=== PATIENT | female | born 1975 | race Caucasian/White ===

== ENCOUNTER 2017-03-16 03:20 | Inpatient (IN) | payer MEDICARE ==
[2017-03-16] MEDS ORDERED: diPHENhydraMINE IV* 50 MG/ML 1 ml VIAL (BENADRYL) ONE (03:42)
[2017-03-16] MEDS ORDERED: LORazepam INJ* 2 MG/ML 1 ML VIAL ONE (03:42)
[2017-03-16] MEDS ORDERED: Haloperidol INJ IV/IM* 5 MG/ML AMP ONE (03:42)
[2017-03-16 06:56] LABS: Anion Gap 7 mmol/L (2-11); BUN/Creatinine Ratio 15.9 (8-20); Blood Urea Nitrogen 13 mg/dL (6-24); CO2 Carbon Dioxide 23 mmol/L (22-32); Calcium 9.2 mg/dL (8.6-10.3); Chloride 105 mmol/L (101-111); EGFR African American 97.9 (>60); EGFR Non-African American 76.1 (>60); Glucose 99 mg/dL (70-100); Sodium 135 mmol/L (133-145)
[2017-03-16 06:57] LABS: ALT 23 U/L (7-52); AST 21 U/L (13-39); Alkaline Phosphatase 50 U/L (34-104); Cholesterol 128 mg/dL; Globulin 2.7 g/dL (2-4); Indirect Bilirubin 0.1 mg/dL (0.3-1.0); Magnesium 2.2 mg/dL (1.9-2.7); Total Protein 6.7 g/dL (6.4-8.9); Triglycerides 113 mg/dL
[2017-03-16 06:58] LABS: C Reactive Protein 7.42 mg/L (< 5.00)
[2017-03-16 07:05] LABS: Hematocrit 38 % (35-47); Hemoglobin 11.7 g/dl (12.0-16.0); Mean Corpuscular HGB Conc 31 g/dl (31-36); Mean Corpuscular Hemoglobin 25 pg (27-31); Mean Corpuscular Volume 80 fL (80-97); Red Blood Count 4.68 10^6/ul (4.0-5.4); White Blood Count 11.1 10^3/ul (3.5-10.8)
[2017-03-16 07:06] LABS: Add Diff/Slide Review? Slide Review Added; Mean Platelet Volume 10 um3 (7.4-10.4); Red Cell Distribution Width 16 % (10.5-15)
[2017-03-16 10:28] LABS: Erythrocyte Sed Rate 14 mm/Hr (0-14)
[2017-03-16 12:49] LABS: Urine Bacteria Absent (Absent); Urine Bilirubin Negative (Negative); Urine Glucose Negative (Negative); Urine Nitrite Negative (Negative)
[2017-03-16 12:57] LABS: Benzodiazepine Urine Screen None Detected (None Detect)
[2017-03-16] MEDS ORDERED: Al Hydrox/Mg Hydrox/Simet LIQ* 30 ML UDC PO PRN (14:20)
[2017-03-16] MEDS ORDERED: hydrOXYzine HCL TAB* 50 MG PO PRN (14:23)
[2017-03-16] MEDS: Acetaminophen TAB* 325 MG PO PRN (21:40)
[2017-03-16] MEDS: OLANzapine TAB*ODT* 10 MG TAB PO SCH (21:41)
[2017-03-17] MEDS: Vitamin THERAPEUTIC TAB PO SCH (10:40)
[2017-03-17] MEDS ORDERED: Mouth Piece, Nicotine* 1 EACH CARTRIDGE ONE (16:58)
[2017-03-17] MEDS: Nicotine Inhaler* 10 MG AMP INH PRN (17:03)
[2017-03-17] MEDS ORDERED: Artificial Tears* 15 ML BTL BOTH EYES PRN (18:51)
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
[2017-03-17] MEDS: Ciproflox/Dexameth OTIC.SUSP* 7.5 ML BTL LEFT EAR SCH (21:36)
[2017-03-17] MEDS: OLANzapine TAB*ODT* 10 MG TAB PO SCH (21:39)
[2017-03-17] MEDS: Citalopram TAB* 20 MG PO SCH (21:39)
[2017-03-18] MEDS: Vitamin THERAPEUTIC TAB PO SCH (10:20)
[2017-03-18] MEDS: Ciproflox/Dexameth OTIC.SUSP* 7.5 ML BTL LEFT EAR SCH (10:26)
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
[2017-03-18] MEDS: Acetaminophen TAB* 325 MG PO PRN (20:53)
[2017-03-18] MEDS: OLANzapine TAB*ODT* 10 MG TAB PO SCH (20:53)
[2017-03-18] MEDS: Citalopram TAB* 20 MG PO SCH (20:53)
[2017-03-18] MEDS ORDERED: Mouth Piece, Nicotine* 1 EACH CARTRIDGE ONE (22:34)
[2017-03-18] MEDS: Nicotine Inhaler* 10 MG AMP INH PRN (22:34)
[2017-03-19] MEDS: Vitamin THERAPEUTIC TAB PO SCH (10:43)
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
[2017-03-19] MEDS: Citalopram TAB* 20 MG PO SCH (21:57)
[2017-03-19] MEDS: OLANzapine TAB*ODT* 10 MG TAB PO SCH (21:57)
[2017-03-20] MEDS ORDERED: AURALGAN OTIC PRN (10:00)
[2017-03-20] MEDS: Vitamin THERAPEUTIC TAB PO SCH (10:55)
--- NOTE | 2017-03-20 14:00 | PN ---
[facility]: Group Therapy Note - Service Type Service Type: 62405 Group Psychotherapy - Cognitive Behavioral Group Therapy ( CBT):Patient was attentive and participatory in CBT programming this morning, and remained in good behavioral control. Patient expressed positive insights regarding relevant treatment interventions and goals.
--- NOTE | 2017-03-20 18:15 | PN ---
Subjective - Subjective Service Type: 53918 Hosp care 15 min low complexity Subjective: The patient has multiple complaints today about her treatment by the police and staff here on the [facility]. She disputes the diagnosis of a psychotic disorder, admitting that she has depression and PTSD but insisting "I've never had any problems with reality. That's not my issue." She is taking citalopram and olanzapine and tolerating them well. 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 She denies SI or HI. Objective - Appearance Appearance: Well Developed/Nourished Dysmorphic Features: No Hygiene: Normal Grooming: Fairly Well Kept - Behavior Psychomotor Activities: Normal Exhibits Abnormal Movement: No - Attitude and Relatedness Attitude and Relatedness: Appropriate Eye Contact: Poor - Speech Quality: Pressured Latencies: Normal Quantity: Copious - Mood Patient's Decription of Mood: "Terrible" - Affect Observed Affect: Tense Affect Consistent with: Dysphoria - Thought Process Patient's Thought Process: Circumstantial Thought Content: Yes Paranoid Ideation, No Passive Wish, No Suicidal Planning, No Homicidal Ideation - Sensorium Experiencing Hallucinations: No, Sensorium is Clear Type of Hallucinations: Visual: No, Auditory: No, Command: No - Level of Consciousness Level of Consciousness: Alert Orientation: Yes Intact, Yes Orientated to Time, Yes Orientated to Place, Yes Orientated to Person - Impulse Control Impulse Control: Poor - Insight and Judgement Insight and Judgement: Impaired - Group Participation Particating in Group Activities: Yes - Medication Management Medication Management Adherence: Yes Assessment - Assessment Merits Inpatient Hospitalization: For Immediate Safety, For Stabilization Inpatient DSM-IV Dx: Unspecified Psychotic DO Clinical Impression: 41 y.o. , mixed-race female with a history of psychosis brought in by the police following belligerent behavior in a convenience store, along with paranoid ideations that she is being followed by Satanists. Plan - Plan Treatment Plan: Name: BETTY ANDERSON Birthdate: 1975 [id number] The patient is receiving citalopram 20mg PO qday and olanzapine 10mg PO qhs. Will continue to treat and await med effect. Continued Medication Management: Start Medication Medications: Current Medications Acetaminophen (Tylenol Tab*) 650 mg PO Q4H PRN PRN Reason: for pain; or Temp >101 F Last Admin: 03/18/17 20:53 Dose: 650 mg Al Hydrox/Mg Hydrox/Simethicone (Maalox Plus*) 30 ml PO Q4H PRN PRN Reason: INDIGESTION Last Admin: 03/19/17 18:44 Dose: 30 ml Citalopram Hydrobromide (Celexa Tab*) 20 mg PO BEDTIME JAKE Last Admin: 03/19/17 21:57 Dose: 20 mg Hydroxyzine HCl (Atarax Tab*) 50 mg PO Q6H PRN PRN Reason: ANXIETY Multivitamins (Theragran Tab*) 1 tab PO DAILY [facility] [place] Last Admin: 03/20/17 10:55 Dose: Not Given Nicotine (Nicotine Inhaler*) 10 mg INH Q2H PRN PRN Reason: CRAVING Last Admin: 03/18/17 22:34 Dose: 10 mg Auralgan Otic Drops 1 dose OTIC Q2H PRN PRN Reason: PAIN Olanzapine (Zyprexa *Odt*) 10 mg PO BEDTIME [facility] Last Admin: 03/19/17 21:57 Dose: 10 mg Polyvinyl Alcohol (Polyvinyl Alcohol 1.4% Opth*) 1 drop BOTH EYES Q2H PRN PRN Reason: DRY EYE - Discharge Plan Discharge Plan: Inpatient Hospitalization
[2017-03-20] MEDS: OLANzapine TAB*ODT* 10 MG TAB PO SCH (20:59)
[2017-03-20] MEDS: Citalopram TAB* 20 MG PO SCH (20:59)
[2017-03-21] MEDS: Vitamin THERAPEUTIC TAB PO SCH (09:14)
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
[2017-03-21] MEDS: Citalopram TAB* 20 MG PO SCH (22:22)
[2017-03-21] MEDS: OLANzapine TAB*ODT* 10 MG TAB PO SCH (22:22)
[2017-03-21] MEDS: Acetaminophen TAB* 325 MG PO PRN (22:23)
[2017-03-22] MEDS: Vitamin THERAPEUTIC TAB PO SCH (10:02)
--- NOTE | 2017-03-22 14:11 | PN ---
MHU: Group Therapy Note - Service Type Service Type: [id number] Group Psychotherapy - Cognitive Behavioral Group Therapy ( CBT):Patient was attentive and participatory in CBT programming this morning, and remained in good behavioral control. Patient expressed positive insights regarding relevant treatment interventions and goals.
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
[2017-03-22] MEDS: Nicotine Inhaler* 10 MG AMP INH PRN (21:17)
[2017-03-22] MEDS: Citalopram TAB* 20 MG PO SCH (21:17)
[2017-03-22] MEDS: OLANzapine TAB*ODT* 10 MG TAB PO SCH (21:17)
[2017-03-23 07:58] LABS: HDL Cholesterol 29.4 mg/dL
[2017-03-23] MEDS: Vitamin THERAPEUTIC TAB PO SCH (10:23)
--- NOTE | 2017-03-23 11:52 | PN ---
MHU: Group Therapy Note - Service Type Service Type: [id number] Group Psychotherapy - Cognitive Behavioral Therapy (CBT): Patient presents with high volume of speech that impresses as being coherent within the context of self-report, but is tangential and off topic in group context. Concerns regarding disorganization of thought are apparent.
--- NOTE | 2017-03-23 14:49 | PN ---
Subjective - Subjective Service Type: 53943 Hosp care 15 min low complexity Subjective: The patient is seen today, along with mobile unit assistant Hailee Colby, for routine follow up care and to address some complaints that she's had about her treatment here. A particular complaint is that her court date has not been scheduled until March 28. She has a copy of the patient rights handout and is skimming it, trying to find a section she insists that she saw before about patients having the right to have their cases adjudicated within 5 days of admission. She is assured that no such policy exists and that we cannot schedule the proceeding, as only a wall cleaner may do that. She continues to be somewhat fixated on delusions of persecution by occult forces and her family. Objective - Appearance Appearance: Obese Dysmorphic Features: No Hygiene: Normal Grooming: Well Kept - Behavior Psychomotor Activities: Normal Exhibits Abnormal Movement: No - Attitude and Relatedness Attitude and Relatedness: Psychotically Related Eye Contact: Fair - Speech Quality: Unpressured Latencies: Normal Quantity: Appropriate - Mood Patient's Decription of Mood: "Upset" - Affect Observed Affect: Tense Affect Consistent with: Dysphoria - Thought Process Patient's Thought Process: Tangential Thought Content: Yes Paranoid Ideation, No Passive Wish, No Suicidal Planning, No Homicidal Ideation - Sensorium Experiencing Hallucinations: No, Sensorium is Clear Type of Hallucinations: Visual: No, Auditory: No, Command: No - Level of Consciousness Level of Consciousness: Alert Orientation: Yes Intact, Yes Orientated to Time, Yes Orientated to Place, Yes Orientated to Person - Impulse Control Impulse Control: Poor - Insight and Judgement Insight and Judgement: Impaired - Group Participation Particating in Group Activities: Yes - Medication Management Medication Management Adherence: Yes Assessment - Assessment Merits Inpatient Hospitalization: For Immediate Safety, For Stabilization Inpatient DSM-IV Dx: Unspecified Psychotic DO Clinical Impression: 41 y.o. , mixed-race female with a history of psychosis brought in by the police following belligerent behavior in a convenience store, along with paranoid ideations that she is being followed by Satanists. Plan - Plan Treatment Plan: Name: BETTY ANDERSON Birthdate: 1975 [id number] The patient remains psychotic. Will increase citalopram to 30mg PO qday and olanzapine to 15mg PO qhs. Will continue to treat and await med effect. Court on March 28 for retention. Continued Medication Management: Start Medication Medications: Current Medications Acetaminophen (Tylenol Tab*) 650 mg PO Q4H PRN PRN Reason: for pain; or Temp >101 F Last Admin: 03/21/17 22:23 Dose: 650 mg Al Hydrox/Mg Hydrox/Simethicone (Maalox Plus*) 30 ml PO Q4H PRN PRN Reason: INDIGESTION Last Admin: 03/19/17 18:44 Dose: 30 ml Hydroxyzine HCl (Atarax Tab*) 50 mg PO Q6H PRN PRN Reason: ANXIETY Multivitamins (Theragran Tab*) 1 tab PO DAILY JAKE Last Admin: 03/23/17 10:23 Dose: Not Given Nicotine (Nicotine Inhaler*) 10 mg INH Q2H PRN PRN Reason: CRAVING Last Admin: 03/22/17 21:17 Dose: 10 mg Polyvinyl Alcohol (Polyvinyl Alcohol 1.4% Opth*) 1 drop BOTH EYES Q2H PRN PRN Reason: DRY EYE Last Admin: 03/23/17 09:04 Dose: 1 drop - Discharge Plan Discharge Plan: Inpatient Hospitalization
[2017-03-23] MEDS ORDERED: OLANzapine TAB*ODT* 5 MG PO SCH (21:00)
[2017-03-23] MEDS ORDERED: Citalopram TAB* 10 MG PO SCH (21:00)
[2017-03-24] MEDS: Vitamin THERAPEUTIC TAB PO SCH (12:25)
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
--- NOTE | 2017-03-24 19:00 | PN ---
Progress Note - Progress Note Note: S: Asked to see patient for complaint of chest pain. Patient reports that she has had pain since arrival though she has only mentioned today. She reports substernal chest pain that appears and resolves spontaneously. It is not associated with activity. She does associated symptoms. She also notes lower extremity edema which she feels is quiet significant. She states that she has had edema in the past for not for the past two years. She reports having a history of "ischemia" and multiple leaky heart valves. She states this was diagnosed in [place]. She denies ever taking medication for cardiac problems. O: Gen:Patient is a well-nourished female examined today on the [facility]. HEENT: Normocephalic, atraumatic. Neuro: A/O x 3, moves all extremities equally. Heart: S1, S2, no MRG, regular. Lungs:CTAB, no accessory muscle use and good aeration. Abd: Soft, NT, BS + x 4. Extremities: Faint edema to B LEs. Skin: Intact. A: Ms. Kohler is a 41 yo female with no known cardiac history or risk factors who complains of ongoing substernal chest pain for the past week not associated with activity. P: On review of the record, it is noted that Ms. Kohler was seen by Dr. Dillard for similar complaint back in 2014. At that time it was felt that no further cardiac testing was indicated. Dr. Dillard does note patient had a negative stress test in 2013. As patient continues to have no risk factors and an unconvincing story of acute coronary syndrome will simply add a troponin to her EKG (which showed no ischemia).
[2017-03-24] MEDS: OLANzapine TAB*ODT* 10 MG TAB PO SCH (21:25)
[2017-03-24] MEDS: Citalopram TAB* 20 MG PO SCH (21:25)
[2017-03-25] MEDS: Vitamin THERAPEUTIC TAB PO SCH (10:10)
--- NOTE | 2017-03-25 14:21 | PN ---
Progress Note - Progress Note Note: Patient has had no chest or neck pain today. She indicates her L axillary fold as the site of her chest pain in addition to her neck pain. It typically lasts about an hour and is not related to exertion.. On exam, her heart and lungs are clear to A&P. No JVD, edema. She is alert, in good spirits, and looks comfortable. I don't hink her pains are cardiac in origin. She may tend to exaggerate her symptoms and illness, as when she state she is pre-diabetic, although her A1C was 6.0 on 03/13/17. I advised her to quit smoking and avoid second hand smoke. This is the most important thing she can do to improve her physical health. She states that nicotine patches worked better for her in the past. Perhaps if she got Medicaid she could get the patches paid by Medicaid. The hospitalist service will be happy to see this patient again at your request.
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
[2017-03-25] MEDS: OLANzapine TAB*ODT* 10 MG TAB PO SCH (21:18)
[2017-03-25] MEDS: Citalopram TAB* 20 MG PO SCH (21:18)
[2017-03-25] MEDS: Acetaminophen TAB* 325 MG PO PRN (21:19)
[2017-03-26] MEDS: OLANzapine TAB*ODT* 10 MG TAB PO SCH (21:07)
[2017-03-26] MEDS: Citalopram TAB* 20 MG PO SCH (21:07)
--- NOTE | 2017-03-27 11:42 | PN ---
MHU: Group Therapy Note - Service Type Service Type: 54986 Group Psychotherapy - Cognitive Behavioral Group Therapy ( CBT):Patient presented in CBT programming as disorganized and disruptive in discussion and needed repeated redirection to attend to presented materials.
--- NOTE | 2017-03-27 13:20 | PN ---
Subjective - Subjective Service Type: 34415 Hosp care 15 min low complexity Subjective: The patient is seen for follow up along with ANTONETTE Condon. Today, she appears to be in good spirits, denying somatic symptoms and minimizing her complaints of persecution in the community. She offers no spontaneously endorsed delusional thoughts and states that she feels safe leaving the hospital. We discuss getting her to rescind her request for court if we could convert her to voluntary legal status, but she continues to opt for discharge tomorrow. She is willing to f/u with MH services in [facility]. She denies SI or HI and is tolerating her medications well. Objective - Appearance Appearance: Obese Dysmorphic Features: No Hygiene: Normal Grooming: Well Kept - Behavior Psychomotor Activities: Normal Exhibits Abnormal Movement: No - Attitude and Relatedness Attitude and Relatedness: Cooperative Eye Contact: Fair - Speech Quality: Unpressured Latencies: Normal Quantity: Appropriate - Mood Patient's Decription of Mood: "Fine" - Affect Observed Affect: Fair Affect Consistent with: Euthymia - Thought Process Patient's Thought Process: Coherent Thought Content: Yes Paranoid Ideation, No Passive Wish, No Suicidal Planning, No Homicidal Ideation - Sensorium Experiencing Hallucinations: No, Sensorium is Clear Type of Hallucinations: Visual: No, Auditory: No, Command: No - Level of Consciousness Level of Consciousness: Alert Orientation: Yes Intact, Yes Orientated to Time, Yes Orientated to Place, Yes Orientated to Person - Impulse Control Impulse Control: Tenuous - Insight and Judgement Insight and Judgement: Fair - Group Participation Particating in Group Activities: Yes - Medication Management Medication Management Adherence: Yes Assessment - Assessment Merits Inpatient Hospitalization: Consolidate Improvements, Pending Safe DC Plan Inpatient DSM-IV Dx: Unspecified Psychotic DO Clinical Impression: 41 y.o. , mixed-race female with a history of psychosis brought in by the police following belligerent behavior in a convenience store, along with paranoid ideations that she is being followed by Satanists. Plan - Plan Treatment Plan: Name: BETTY ANDERSON Birthdate: 1975 [id number] The patient has been steadily improving on citalopram 20mg PO qday and olanzapine 10mg PO qhs. She is insistent on d/c tomorrow and we have no evidence to provide the court to justify involuntary retention. Likely d/c tomorrow (03/28). Continued Medication Management: Start Medication Medications: Current Medications Acetaminophen (Tylenol Tab*) 650 mg PO Q4H PRN PRN Reason: for pain; or Temp >101 F Last Admin: 03/25/17 21:19 Dose: 650 mg Al Hydrox/Mg Hydrox/Simethicone (Maalox Plus*) 30 ml PO Q4H PRN PRN Reason: INDIGESTION Last Admin: 03/19/17 18:44 Dose: 30 ml Citalopram Hydrobromide (Celexa Tab*) 20 mg PO BEDTIME JAKE Last Admin: 03/26/17 21:07 Dose: 20 mg Hydroxyzine HCl (Atarax Tab*) 50 mg PO Q6H PRN PRN Reason: ANXIETY Nicotine (Nicotine Inhaler*) 10 mg INH Q2H PRN PRN Reason: CRAVING Last Admin: 03/22/17 21:17 Dose: 10 mg Olanzapine (Zyprexa *Odt*) 10 mg PO BEDTIME JAKE Last Admin: 03/26/17 21:07 Dose: 10 mg Polyvinyl Alcohol (Polyvinyl Alcohol 1.4% Opth*) 1 drop BOTH EYES Q2H PRN PRN Reason: DRY EYE Last Admin: 03/23/17 09:04 Dose: 1 drop - Discharge Plan Discharge Plan: Outpatient Follow Up Outpatient Program: [facility]
[2017-03-27] MEDS: Citalopram TAB* 20 MG PO SCH (22:16)
[2017-03-27] MEDS: OLANzapine TAB*ODT* 10 MG TAB PO SCH (22:16)
[2017-03-28 08:04] VITALS: BP 151/99
--- NOTE | 2017-03-28 11:21 | PN ---
MHU: Group Therapy Note - Service Type Service Type: [id number] Group Psychotherapy - Cognitive Behavioral Group Therapy ( CBT):Patient was attentive and participatory in CBT programming this morning, and remained in good behavioral control. Patient expressed positive insights regarding relevant treatment interventions and goals.
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
== END 2017-03-28 17:30 | disposition home or self-care (01) | DRG 885 ==
LOC: ED 05:10 → BSU 14:36
PROVIDERS: ADMIT Psychiatry & Neurology Psychiatry; ATTEND Psychiatry & Neurology Psychiatry
DX: F33.3 Major depressive disorder, recurrent, severe with psychotic symptoms (principal); F45.0 Somatization disorder; F17.210 Nicotine dependence, cigarettes, uncomplicated; R07.89 Other chest pain; H92.02 Otalgia, left ear; H57.13 Ocular pain, bilateral
CPT/HCPCS: 36415; 80053; 80061; 80307; 81003; 81015; 82248; 82465; 83036; 83735; 84478; 84484; 84702; 85025; 85610; 85652; 85730; 86140; 90853; 93005; 99222; 99231; 99232; 99406; A9270-GY; J1200; J1630; J2060